=== PATIENT | female | born 1960 | race Two or more races ===

== ENCOUNTER 2017-01-03 15:44 | Observation (INO) | payer BC, OTHER ==
[2017-01-03] MEDS ORDERED: SODIUM CHLORIDE 0.9% 500 ML ONE (16:34)
[2017-01-03] MEDS ORDERED: ASPIRIN CHEWTAB 81 MG TABLET ONE (16:35)
[2017-01-03 16:45] LABS: ABSOLUTE NEUTROPHIL COUNT 2.6 K/mm3 (1.8-7.7); BASO % 0.6 % (0.2-1.0); EOS # 0.1 (0.0-0.5); EOS % 1.5 % (0.9-2.9); HEMATOCRIT 40.3 % (37.0-47.0); HEMOGLOBIN 13.2 gm/l (12.0-16.0); IMM NEUT% 0.2 % (0-1); LYMPH # 2.4 (1.0-4.8); LYMPH % 44.6 % (15-45); MEAN CELL VOLUME 86.7 fl (81.0-99.0); MEAN CORPUSCULAR HEMOGLOBIN 28.4 pg (27.0-31.0); MEAN CORPUSCULAR HGB CONC 32.8 g/dl (33.0-37.0); MEAN PLATELET VOLUME 12.2 fl (7.4-10.4); MONO # 0.2 (0.0-0.8); MONO % 4.5 % (4-12); NEUT % 48.6 % (43-75); PLATELET COUNT 205 K/mm3 (130-400); RED CELL DISTRIBUTION WIDTH 12.8 % (11.5-14.5)
[2017-01-03 17:06] LABS: TROPONIN I 0.01 ng/ml (0.0-0.06)
[2017-01-03 17:08] LABS: ALB/GLOB RATIO 1.5 (>1.0); ALBUMIN 4.5 gm/dL (3.5-5.7); CALCIUM 9.8 mg/dL (8.6-10.3)
[2017-01-03 17:10] LABS: CKMB ISOENZYME 0.7 ng/ml (0.6-6.3)
--- NOTE | 2017-01-03 17:31 | RAD ---
CHEST 2 VIEWS HISTORY: Chest discomfort. Frontal and lateral chest radiographs dated 01/03/2017. COMPARISON: 10/05/2005 FINDINGS: FOCAL AIRSPACE OPACITY: No gross airspace consolidation. Minor bronchial wall thickening. PLEURAL EFFUSION: None. CARDIOMEDIASTINAL SILHOUETTE: Nonenlarged. PNEUMOTHORAX: None identified. OSSEOUS STRUCTURES: No grossly destructive lesions. IMPRESSION: No gross airspace disease. Minor bronchial wall thickening may indicate bronchitis or central airways disease.
[2017-01-03] MEDS ORDERED: REGADENOSON 0.1 MG DOSE IV ONE (17:50)
[2017-01-03] MEDS ORDERED: INSULIN ASPART (DOSE) 100 UNITS/1 ML SUB-Q PRN (18:24)
[2017-01-03] MEDS ORDERED: BISACODYL 5 MG TABLET.EC PO PRN (18:24)
[2017-01-03] MEDS ORDERED: BISACODYL 10 MG SUP PR PRN (18:24)
[2017-01-03] MEDS ORDERED: MAGNESIUM HYDROXIDE 30 ML UDCUP PO PRN (18:24)
[2017-01-03] MEDS ORDERED: ACETAMINOPHEN 325 MG TABLET PO PRN (18:24)
[2017-01-03] MEDS ORDERED: MENTHOL/CETYLPYRD 1 EACH LOZENGE PO PRN (18:24)
[2017-01-03] MEDS ORDERED: SODIUM CHLORIDE 0.9% 100 ML IV PRN (18:24)
[2017-01-03] MEDS ORDERED: BLISTEX LIPSTICK 1 EACH TP PRN (18:24)
[2017-01-03] MEDS ORDERED: PANTOPRAZOLE SODIUM 40 MG VIAL IV SCH (19:00)
[2017-01-03] MEDS ORDERED: PNEUMOCOCCAL 23-VAL P-SAC VAC 0.5 ML VIAL IM V ONE (20:05)
[2017-01-03] MEDS ORDERED: DIPHENHYDRAMINE HCL 25 MG CAPSULE PO PRN (20:05)
[2017-01-03 20:08] VITALS: BMI 23.1
[2017-01-03] MEDS ORDERED: PRAVASTATIN SODIUM 20 MG TABLET PO SCH (21:00)
[2017-01-03] MEDS ORDERED: TRAVOPROST OU SCH (21:07)
[2017-01-03] MEDS: DOCUSATE SODIUM 100 MG CAPSULE PO SCH (21:36)
[2017-01-04 06:05] LABS: CALCIUM 9.3 mg/dL (8.6-10.3); CHOLESTEROL RISK RATIO 3.4 (3.7-5.6)
--- NOTE | 2017-01-04 07:34 | HP ---
Italia Santana [id number] CHIEF COMPLAINT: High blood sugar and chest pain. HISTORY OF PRESENT ILLNESS: The patient is a 56-year-old female with adult onset diabetes on insulin who presented to [facility] Emergency Department today with concerns regarding substernal chest pain which started about two hours after eating breakfast. The patient also has been having elevated blood sugars as high as 500 plus since Saturday. She has had complaints of a headache off and on since Saturday and just generalized malaise. She reports her chest pain is in the substernal area radiating to the neck that started around 10:00 a.m. It lasted all day until she was seen in the emergency department. The pain level was up to a 2/10 in severity and seemed to go away when she got nitroglycerin and aspirin in the emergency department. REVIEW OF SYSTEMS: Negative for any fevers or chills. She has had no upper respiratory symptoms. She has had some burning in her eyes and some blurry vision. She denies nasal congestion, ear pain, or sore throat. She denies any cough, wheezing, or dyspnea. No palpitations, lower extremity edema, or wheezing. She has had no nausea or vomiting. No diarrhea or constipation. No abdominal pain. She denies any headaches, fainting, blackouts, or seizures. She denies any urinary symptoms. Review of systems is otherwise negative. PAST MEDICAL HISTORY: Significant for adult onset diabetes. She has been treated with insulin for the past 10 years. She has had a history of glaucoma, chronic essential hypertension, and hypercholesterolemia. She has had no recent hospitalizations. PAST SURGICAL HISTORY: Significant for tubal ligation. ALLERGIES: She has no known drug allergies. HOME MEDICATIONS: 1. Travatan Z eye drops 0.004% one drop in each eye at bedtime. 2. Pravastatin 40 mg at bedtime. 3. Lisinopril 10 mg daily. 4. Lantus 25 units subcutaneously every morning. FAMILY HISTORY: Unremarkable. SOCIAL HISTORY: Patient denies alcohol, tobacco, or illicit drug use. She lives with her spouse and her daughter. She is independent with her activities of daily living and she is unemployed. Her primary care provider is Dr. Fany Porter. PHYSICAL EXAMINATION: VITAL SIGNS: Show a temperature of 98.1, pulse 62, blood pressure 124/66, respirations 16, oxygen saturation 99% on room air. GENERAL: This is a well-developed, well-nourished elderly female in no acute distress. HEENT: Shows pupils equal, round, and reactive to light. Extraocular movements are intact. No oral lesions are present. NECK: Supple without lymphadenopathy or thyromegaly. LUNGS: Clear to auscultation bilaterally. CARDIOVASCULAR: Reveals a regular rate and rhythm without a murmur. ABDOMEN: Soft, nontender, nondistended with positive bowel sounds. EXTREMITIES: Show no peripheral edema. Dorsalis pedis pulses are 2+ in both feet. NEUROLOGIC: Nonfocal. DIAGNOSTIC IMAGING STUDIES: Included a chest x-ray showing no gross air space disease, minor bronchial wall thickening is seen. No cardiomegaly is present. A 12-lead EKG shows sinus rhythm with a first degree AV block and no acute ST or T-wave changes. LABORATORY STUDIES: Included a CBC with a white blood cell count of 5.4, hemoglobin of 13.2, and a platelet count of 205,000. Chemistry profile notable for a sodium of 135, potassium 3.5, BUN 12, creatinine 0.5, and a glucose of 306. Liver function tests were unremarkable. Total CPK level was 56 with a CK-MB of 0.7 and a troponin I of 0.01. ASSESSMENT: Patient has diabetes with recent hyperglycemia unclear etiology. We will get a hemoglobin A1c to assess her group home control. She may benefit from a short acting insulin and further education regarding use of a sliding scale. Apparently she is checking her blood sugar multiple times a day and does not know what to do with the results. She has chest pain and this may represent an acute coronary syndrome and she will be on telemetry and we will get serial cardiac enzymes, if negative anticipate a Sixto protocol myoview. She has chronic essential hypertension. We will continue her lisinopril. She has hypercholesterolemia, we will continue her Pravachol and check a fasting lipid profile tomorrow. She has a history of glaucoma and we will continue her eye drops from home. I anticipate a short stay. She meets criteria for observation. Venous thromboembolism is considered low and prophylaxis is not indicated. Further treatment and recommendations will depend on her hospital course. JOB: [id number] CC: Dr. Porter
[2017-01-04] MEDS ORDERED: INSULIN GLARGINE (DOSE) 100 UNITS/ML UNIT SUB-Q SCH (09:00)
[2017-01-04] MEDS ORDERED: LISINOPRIL 10 MG TABLET PO SCH (09:00)
--- NOTE | 2017-01-04 10:43 | NUC MED ---
Exam: Nuclear medicine myocardial SPECT, ejection fraction and wall motion Comparison: None Indication: Chest pain, diabetes, shortness of breath. Technique: 11.9 mCi of technetium 99m sestamibi were administered for the rest portion of the exam and SPECT imaging was obtained per protocol. Stress was achieved via the administration of 0.4 mg of LexiScan. At maximum stress, 37.0 mCi of technetium 99m sestamibi were administered and SPECT imaging was obtained per protocol. Findings: Ejection fraction is calculated at 76%. There are no focal wall motion abnormalities. Myocardial perfusion is within normal limits at stress. At rest: There is decreased uptake within the septum and anterior wall towards the apex which is felt to be related to artifact given that there is increased and normal perfusion in these locations at stress. Some gut uptake is noted. Impression: 1. No evidence of significant stress-induced ischemia. 2. No focal wall motion abnormalities. 3. Ejection fraction 76%. Report was called to Dr. Ibrahim at 1035 hours 01/04/2017
[2017-01-04] MEDS: DOCUSATE SODIUM 100 MG CAPSULE PO SCH (10:44)
[2017-01-04 10:48] VITALS: BP 115/61
[2017-01-04] MEDS ORDERED: SODIUM CHLORIDE 0.9% FLUSH 10 ML ONE (10:58)
[2017-01-04 11:08] LABS: A1C-GLYCOHEMOGLOBIN 1.2 g/dl; HEMOGLOBIN-GLYCO 11.9 g/dl
[2017-01-04] MEDS ORDERED: INSULIN ASPART (DOSE) 100 UNITS/1 ML SUB-Q SCH (13:00)
--- NOTE | 2017-01-04 13:44 | DS ---
Italia Santana [id number] DATE OF ADMISSION: 01/03/2017 DATE OF DISCHARGE: 01/04/2017 DISCHARGE DIAGNOSES: 1. Uncontrolled adult onset diabetes on insulin. 2. Noncardiac chest pain. 3. Suspected major depression. 4. Chronic insomnia. 5. Glaucoma. 6. Chronic essential hypertension. 7. Hypercholesterolemia. TO SUMMARIZE THE ADMISSION AND HOSPITAL COURSE: The patient is a 56-year-old male with adult onset diabetes on insulin who presented with a four day history of hyperglycemia, generalized malaise, myalgia's, and chest pain. She was referred to the hospitalist service for observation. During her period of observation serial cardiac enzymes were negative. Telemetry showed no cardiac abnormalities. She had some mild hypoglycemia with blood sugars in the mid to 100's managed with correction scale NovoLog. She received diabetic education with a religious activities director. She was instructed on the use of a NovoLog medium correction scale as well as starting Prandial NovoLog insulin with each meal. She underwent a myocardial perfusion study showing no evidence of any stress induced ischemia and no focal wall motion abnormalities. Her ejection fraction was 76%. She was felt to be medically stable for discharge on January 04. PHYSICAL EXAMINATION: VITAL SIGNS: At discharge BMI 23, weight is 50 kg, temperature 97.0, pulse 70, blood pressure 109/50, respirations 16, oxygen saturation 96% on room air. GENERAL: This is a well-developed, well-nourished female in no acute distress. HEENT: Unremarkable. NECK: Supple without lymphadenopathy or thyromegaly. LUNGS: Clear to auscultation bilaterally. CARDIOVASCULAR: Reveals a regular rate and rhythm without a murmur. ABDOMEN: Soft, nontender, nondistended with positive bowel sounds. EXTREMITIES: Show no peripheral edema. LABORATORY STUDIES: On the day of discharge included a sodium of 140, potassium 3.2, BUN 9, creatinine 09.4, glucose of 80 this morning. Hemoglobin A1c is currently pending. Her troponin I is less than 0.01. CBC is unremarkable. DISPOSITION: Home. DISCHARGE MEDICATIONS: I prescribed: 1. NovoLog insulin 5 units subcutaneously three times a day with meals with moderate correction scale to use if needed. 2. She is going to resume Lantus 25 units subcutaneously daily. 3. Lisinopril 10 mg daily. 4. Pravachol 40 mg at bedtime. 5. Travatan Z 0.004% eye drops one drop in each eye at bedtime. FOLLOWUP: She will have a follow up appointment scheduled with her primary care provider, Dr. Fany Porter. VACCINATIONS: She was given a pneumococcal vaccination on 01/03/2017. JOB: [id number] CC: Dr. Fany Porter
== END 2017-01-04 14:00 | disposition home or self-care (01) ==
LOC: ED 15:44 → MS 17:49
PROVIDERS: ADMIT Family Medicine; ATTEND Family Medicine
PROC: 3E0234Z Introduction of Serum, Toxoid and Vaccine into Muscle, Percutaneous Approach (ICD-10-PCS; principal; 2017-01-03)
DX: E11.65 Type 2 diabetes mellitus with hyperglycemia (principal); Z79.4 Long term (current) use of insulin; R07.89 Other chest pain; F51.04 Psychophysiologic insomnia; H40.9 Unspecified glaucoma; I10 Essential (primary) hypertension; E78.00 Pure hypercholesterolemia, unspecified; Z23 Encounter for immunization
CPT/HCPCS: 90732; 85025; 82550; 82553; 80048; 80053; 83036; 80061; 84484 ×3; 71020; 78452; 99284; 96360; 82962; 93017; 93005; 99285; 90749; 90471; A9270 ×5; C9113; J7040; J2785; J1815 ×2; A9500